=== PATIENT | male | born 1995 | race Caucasian/White ===

== ENCOUNTER 2018-04-15 20:55 | Emergency (ER) | payer OTHER ==
[2018-04-15] MEDS ORDERED: IBUPROFEN 600 MG TABLET ONE (21:28)
== END 2018-04-15 22:27 | disposition home or self-care (01) ==
LOC: EDH 20:55
DX: S83.8X1A Sprain of other specified parts of right knee, initial encounter (principal); W18.39XA Other fall on same level, initial encounter; Y93.39 Activity, other involving climbing, rappelling and jumping off; Y92.39 Other specified sports and athletic area as the place of occurrence of the external cause; Y99.8 Other external cause status
CPT/HCPCS: 73560; 73562